=== PATIENT | female | born 2000 | race Caucasian/White ===

== ENCOUNTER 2024-11-02 05:54 | Observation (INO) | payer OTHER ==
[2024-11-02] VITALS (7 sets, daily range): BP systolic 118–131; BP diastolic 68–91; TEMP 97.2–97.7; O2SAT 95–100
[~2024-11-02] VITALS: Ht 170.2 cm; Wt 71.8 kg
[~2024-11-02 05:54] MED LIST: AMIT50TA PO; D 50CAP2 PO; MULT-90 PO
[2024-11-02] MEDS ORDERED: LR 1,000 ML IV SCH (06:20)
[2024-11-02] MEDS ORDERED: LIDOCAINE 1% SDV 5ML VIAL SC PRN (06:20)
[2024-11-02] MEDS ORDERED: ONDANSETRON 4MG 2ML VIAL As Ordered ONE (07:21)
[2024-11-02] MEDS ORDERED: dexmedeTOMIDine (4MCG/ML)200MCG/50ML BTL (PRECEDEX) As Ordered ONE (07:21)
[2024-11-02] MEDS ORDERED: fentaNYL 250 MCG/5 ML INJECTION As Ordered ONE (07:21)
[2024-11-02] MEDS ORDERED: LIDOCAINE 2% 100MG/5ML SDV (FOR ANES.) As Ordered ONE (07:21)
[2024-11-02] MEDS ORDERED: ROCURONIUM BROMIDE 50MG/5ML VIAL As Ordered ONE (07:21)
[2024-11-02] MEDS ORDERED: MIDAZOLAM INJ 2MG/2ML VIAL As Ordered ONE (07:21)
[2024-11-02] MEDS ORDERED: propofoL 200 MG/20 ML VIAL As Ordered ONE (07:21)
[2024-11-02] MEDS ORDERED: HOME MED LIST COMPLETE! XX SCH (07:45)
[2024-11-02] MEDS: ceFAZolin SOD 2 GM IV ONCE IV ONE (08:03)
[2024-11-02] MEDS: HEPARIN SOD (PORCINE) 5000UNITS/ML 1ML VIAL/SYRINGE SQ ONE (08:14)
[2024-11-02] MEDS ORDERED: SUGAMMADEX SODIUM 500 MG/5 ML VIAL (BRIDION) As Ordered ONE (08:41)
[2024-11-02] MEDS ORDERED: HYDROmorphone HCL 2MG/ML 1ML VIAL As Ordered ONE (08:41)
[2024-11-02] MEDS ORDERED: METOCLOPRAMIDE INJ 10MG/2ML VIAL As Ordered ONE (08:41)
[2024-11-02] MEDS ORDERED: ACETAMINOPHEN 1000MG/100ML IV BAG As Ordered ONE (08:42)
[2024-11-02] MEDS: GENTAMICIN SULF 80MG/2ML VIAL As Ordered ONE (08:59)
[2024-11-02] MEDS: BUPivacaine LIPOSOME/PF 266MG 20ML VIAL (13.3MG/ML)(EXPAREL) As Ordered ONE (10:40)
[2024-11-02] MEDS ORDERED: ESMOLOL INJ 100MG/10ML VIAL As Ordered ONE (11:11)
[2024-11-02] MEDS: LR 1,000 ML IV SCH ×2 (11:20→13:26)
[2024-11-02] MEDS ORDERED: fentaNYL 100 MCG/2 ML INJECTION IV PRN (11:20)
[2024-11-02] MEDS ORDERED: HYDROMORPHONE HCL 0.5 MG/ 0.5 ML SYRINGE IV PRN (11:20)
[2024-11-02] MEDS ORDERED: ONDANSETRON 4MG 2ML VIAL IV PRN (11:20)
[2024-11-02] MEDS: oxyCODONE 5MG TAB PO PRN (12:24)
[2024-11-02] MEDS: ceFAZolin SODIUM 2 GM in DEXTROSE 5% (D5W) ADV/MINI-BAG 50 ML IV SCH (15:40)
[2024-11-02] MEDS: traMADol 50 MG TAB PO PRN (15:45)
[2024-11-02] MEDS: PERCOCET 5MG/325MG TAB PO PRN (17:03)
[2024-11-02] MEDS: ONDANSETRON 4MG 2ML VIAL IV PRN (18:33)
[2024-11-02] MEDS: ACETAMINOPHEN 325 MG TAB PO PRN (21:31)
[2024-11-03] VITALS: BP 132/87; TEMP 97.7; O2SAT 96
[2024-11-03 04:11] VITALS: BP 128/83; TEMP 97.7; O2SAT 98
[2024-11-03 08:00] VITALS: BP 125/81; TEMP 97.7
[2024-11-03] MEDS ORDERED: PERCOCET PO (09:38)
[2024-11-03] MEDS ORDERED: ONDA-83 PO (09:38)
[2024-11-03 12:00] VITALS: BP 126/74; TEMP 97.9
== END 2024-11-03 12:30 | disposition home or self-care (01) ==
LOC: M SDC 05:54 → M RR INP 05:55 → M MS5PR 13:18
PROVIDERS: ADMIT Plastic Surgery Surgery of the Hand; ATTEND Plastic Surgery Surgery of the Hand
DX: N62 Hypertrophy of breast (principal); M54.6 Pain in thoracic spine
CPT/HCPCS: 19318; 81025; 88305; 96374; 96375; 96376; J0131; J0665; J0666; J0690; J1100; J1171; J1580; J1805; J2250; J2405; J2765; J3010